=== PATIENT | male | born 1980 | race Caucasian/White ===

== ENCOUNTER 2017-08-25 17:56 | Emergency (ER) | payer SELFPAY ==
[2017-08-25 17:57] VITALS: BMI 28.0
[2017-08-25 18:24] VITALS: TEMP 99.4
--- NOTE | 2017-08-25 18:38 | ED PDOC ---
Arrival/HPI - General Chief Complaint: ENT Problem Time Seen by Provider: 08/25/17 18:29 Historian: Patient - History of Present Illness Narrative History of Present Illness (Text): 08/25/17 36 yo male w/o significant PMHx come in for evaluation of low grade fever for past few days associated with sore throat, throat swelling, dry cough. Pt reports, " today was painful to swallow and developed some neck swelling". Otherwise, pt denies high fever, headache, dizziness, drooling, dyspnea, CP, SOB , wheezing, abd. pain, V/D, UTI sx, rash, denies recent travel or known sick contact. Ambulate to Ed for evaluation, not in any apparent distress. Past Medical History - Provider Review Nursing Documentation Reviewed: Yes - Travel History Have you recently traveled outside [place] w/in the past 3 mons?: No - Infectious Disease Hx of Infectious Diseases: None - Tetanus Immunization Tetanus Immunization: Unknown - Cardiac Hx Hypertension: Yes - Pulmonary Hx Respiratory Disorders: (patient feels "SOB at night sometimes") - Neurological Hx Neurological Disorder: No - HEENT Hx HEENT Disorder: No - Renal Hx Renal Disorder: Yes (renal colic) Hx Kidney Stones: Yes Other/Comment: left hydrocephalus, stent [place] [facility] [place] Endocrine/Metabolic Hx Endocrine Disorders: No - Hematological/Oncological Hx Blood Disorders: No - Integumentary Hx Dermatological Disorder: No - Musculoskeletal/Rheumatological Hx Musculoskeletal Disorders: No - Gastrointestinal Hx Gastrointestinal Disorders: No - Genitourinary/Gynecological Hx Genitourinary Disorders: Yes Hx Hematuria: Yes - Psychiatric Hx Psychophysiologic Disorder: No Hx Substance Use: No - Past Surgical History Past Surgical History: No Previous - Surgical History Other/Comment: lithotripsy for kidney stone - Anesthesia Hx Anesthesia: Yes Hx Anesthesia Reactions: No Hx Malignant Hyperthermia: No - Suicidal Assessment Feels Threatened In Home Enviroment: No Family/Social History - Physician Review Nursing Documentation Reviewed: Yes Family/Social History: No Known Family HX Smoking Status: Never Smoked Hx Alcohol Use: No Hx Substance Use: No Hx Substance Use Treatment: No Allergies/Home Meds Allergies/Adverse Reactions: Allergies No Known Allergies Allergy (Verified 08/25/17 18:25) Review of Systems - Review of Systems Constitutional: Fevers Eyes: Normal ENT: Sore Throat Respiratory: Cough Cardiovascular: Normal Gastrointestinal: Normal Genitourinary Male: Normal Musculoskeletal: Normal Skin: Normal Neurological: Normal Endocrine: Normal Hemo/Lymphatic: Normal Psychiatric: Normal Physical Exam Vital Signs Reviewed: Yes Vital Signs Temp Pulse Resp BP Pulse Ox 08/25/17 18:22 99.4 F 87 16 139/83 100 Temperature: Afebrile Blood Pressure: Normal Pulse: Regular Respiratory Rate: Normal Appearance: Positive for: Well-Appearing, Non-Toxic, Comfortable Pain Distress: Moderate Mental Status: Positive for: Alert and Oriented X 3 - Systems Exam Conjunctiva: Present: Normal Ears: Present: NORMAL TM, Normal Canal Mouth: Present: Moist Mucous Membranes, Normal Lips. No: Drooling Pharnyx: Present: ERYTHEMA (B/L), EXUDATE (B/L), TONSILS ENLARGED (B/l with exudate), Other (uvula midline, no edema) Nose (Internal): Present: Normal Inspection Neck: Present: Trachea Midline. No: Meningeal Signs Respiratory/Chest: Present: Clear to Auscultation, Good Air Exchange. No: Respiratory Distress, Accessory Muscle Use Cardiovascular: Present: Regular Rate and Rhythm, Normal S1, S2. No: Murmurs Abdomen: Present: Normal Bowel Sounds. No: Tenderness, Distention, Peritoneal Signs, Rebound, Guarding Upper Extremity: Present: Normal ROM Lower Extremity: Present: Normal ROM. No: Edema, Deformity Neurological: Present: GCS=15, Speech Normal Skin: Present: Warm, Dry, Normal Color. No: Rashes Psychiatric: Present: Alert, Oriented x 3 Medical Decision Making ED Course and Treatment: 08/25/17 19:23 On re-evaluation, pt is afebrile, hemodynamicaly stable. Non-toxic. Pt reports, moderate improvement in sx Tolerate Po well in ED. PusleOx 100% RA Neck: Supple, (-) meningeal sign ENT: exam c/w acute tonsillitis. uvula midline, no edema. Lungs: CTA B/L, BS equal B/L. Abd: benign. Neurologicaly intact. Blood work review and appears without acute abnormalities. Pt advised on course of ds. ref. to F/u with PMD, ENT in 2-3 days for re-eval. return to ED if any worsening or new changes. - Lab Interpretations Lab Results: 08/25/17 18:36 08/25/17 18:36 Lab Results 08/25/17 18:36: Grp A Beta Strep Ag Negative 08/25/17 18:36: Sodium 138, Potassium 4.0, Chloride 100, Carbon Dioxide 31, Anion Gap 12, BUN 14, Creatinine 1.2, Est GFR ( Amer) > 60, Est GFR (Non- Af Amer) > 60, Random Glucose 95, Calcium 9.8, Total Bilirubin 0.4, AST 50, ALT 82 H, Alkaline Phosphatase 119, Total Protein 8.4 H, Albumin 4.7, Globulin 3.8, Albumin/Globulin Ratio 1.2 08/25/17 18:36: WBC 12.9 H D, RBC 5.19, Hgb 15.1, Hct 42.2, MCV 81.3, MCH 29.1, MCHC 35.8, RDW 12.4, Plt Count 325, MPV 8.8, Gran % 60.5, Lymph % (Auto) 29.1, [place] % (Auto) 8.7 H, Eos % (Auto) 1.5, Baso % (Auto) 0.2, Gran # 7.83 H, Lymph # 3.8 H, [place] # 1.1 H, Eos # 0.2, Baso # 0.03 - Medication Orders Current Medication Orders: Lactated Ringer's (Lactated Ringer's) 500 mls @ 500 mls/hr IV .Q1H JOANA Last Admin: 08/25/17 19:12 Dose: 500 mls/hr eMAR Start Stop Document 08/25/17 19:12 GMD (Rec: 08/25/17 19:12 [place]MD [facility] [id number] Intravenous Solution Start Date 08/25/17 Start Time 19:12 End Date 08/25/17 End time 20:12 Total Infusion Time 60 Discontinued Medications Clindamycin Phosphate 600 mg/ (Sodium Chloride) 54 mls @ 108 mls/hr IVPB STAT STA PRN Reason: Protocol Stop: 08/25/17 19:03 Last Admin: 08/25/17 19:39 Dose: 108 mls/hr eMAR Start Stop Document 08/25/17 19:39 GMD (Rec: 08/25/17 19:39 GMD [facility] [id number] Intravenous Solution Start Date 08/25/17 Start Time 19:39 End Date 08/25/17 End time 20:09 Total Infusion Time 30 Ketorolac Tromethamine (Toradol) 30 mg IVP STAT STA Stop: 08/25/17 18:31 Last Admin: 08/25/17 18:47 Dose: 30 mg MAR Pain Assessment Document 08/25/17 18:47 GMD (Rec: 08/25/17 18:47 GMD [place] [id number]) Pain Reassessment Is this a pain reassessment? No Sleep Is patient sleeping during reassessment? No Presence of Pain Presence of Pain Yes IVP Administration Document 08/25/17 18:47 GMD (Rec: 08/25/17 18:47 [facility] Charges for Administration # of IVP Administrations 1 Methylprednisolone (Solu-Medrol) 125 mg IVP STAT STA Stop: 08/25/17 18:31 Last Admin: 08/25/17 18:46 Dose: 125 mg IVP Administration Document 08/25/17 18:46 GMD (Rec: 08/25/17 18:47 [facility] Charges for Administration # of IVP Administrations 1 Disposition/Present on Arrival - Present on Arrival Any Indicators Present on Arrival: No History of DVT/PE: No History of Uncontrolled Diabetes: No Urinary Catheter: No History of Decub. Ulcer: No History Surgical Site Infection Following: None - Disposition Have Diagnosis and Disposition been Completed?: Yes Diagnosis: Tonsillitis Disposition Time: 19:24 Patient Plan: Discharge Patient Problems: Current Active Problems Problem Status Onset Tonsillitis Acute Condition: STABLE Discharge Instructions (ExitCare): Tonsillitis (ED) Additional Instructions: ENCOURAGE FLUIDS TAKE MEDICATION PRESCRIBED FOLLOW UP WITH PMD, ENT IN 2-3 DAYS FOR RE-EVALUATION. RETURN TO ED IF ANY WORSENING OR NEW CHANGES. Prescriptions: Clindamycin [Cleocin] 300 mg PO Q6 #28 cap Ketorolac Tromethamine [Toradol] 10 mg PO BID #6 tab Prednisone [Deltasone] 40 mg PO DAILY #8 tablet Referrals: Eve Baca, [Primary Care Provider] - Follow up with primary Jack Beach DO [Staff Provider] - Follow up with primary Forms: [employer] (Chinese)
[2017-08-25] MEDS ORDERED: Lactated Ringer's 500 ML IV SCH (18:45)
[2017-08-25 19:02] LABS: BASO # 0.03 K/mm3 (0.0-2.0); BASO % 0.2 % (0.0-3.0); EOS # 0.2 (0.0-0.7); EOS % 1.5 % (1.5-5.0); GRAN # 7.83 (1.4-6.5); GRAN % 60.5 % (50.0-68.0); HEMATOCRIT 42.2 % (42.0-52.0); LYMPH # 3.8 (1.2-3.4); LYMPH % 29.1 % (22.0-35.0); MEAN CELL VOLUME 81.3 fl (80.0-105.0); MEAN CORPUSCULAR HEMOGLOBIN 29.1 pg (25.0-35.0); MEAN CORPUSCULAR HGB CONC 35.8 g/dl (31.0-37.0); MEAN PLATELET VOLUME 8.8 fl (7.0-11.0); MONO # 1.1 (0.1-0.6); MONO % 8.7 % (1.0-6.0); RED CELL DISTRIBUTION WIDTH 12.4 % (11.5-14.5); WHITE BLOOD COUNT 12.9 10^3/ul (4.5-11.0)
[2017-08-25 19:03] LABS: ALKALINE PHOSPHATASE 119 U/L (38-126); ALT/SGPT 82 U/L (7-56); AST/SGOT 50 U/L (17-59); BILIRUBIN,TOTAL 0.4 mg/dL (0.2-1.3); BLOOD UREA NITROGEN 14 mg/dL (7-21); CALCIUM 9.8 mg/dL (8.4-10.5); CARBON DIOXIDE 31 mmol/L (21-33); CHLORIDE 100 mmol/L (98-107); GFR AFRICAN-AMERICAN > 60; GLUCOSE,RANDOM 95 mg/dL (70-110); SODIUM 138 mmol/L (132-148); TOTAL PROTEIN 8.4 g/dL (5.8-8.3)
[2017-08-25 19:45] LABS: ALB/GLOB RATIO 1.2 (1.1-1.8)
[2017-08-25 19:55] VITALS: BP 129/63; PULSE 84; RESP 18; O2SAT 98
== END 2017-08-25 20:14 | disposition home or self-care (01) ==
LOC: ED 17:56
DX: J03.90 Acute tonsillitis, unspecified (principal)
CPT/HCPCS: 80053; 85025; 87070; 87430; 96365; 96375; 99284; J1885; J2930; J7120